=== PATIENT | male | born 1990 | race Caucasian/White ===

== ENCOUNTER → 2017-04-21 | Outpatient (CLI) | payer OTHER ==
[~2017-04-21] MED LIST: CIPR-255 PO; CPR500 PO; METR-163 PO; OXYC-57 PO
--- NOTE | 2017-04-21 11:19 | DIAGNOSTIC IMAGING REPORT ---
ABDOMEN FOR HERNIA CLINICAL HISTORY: 27 years-old Male presenting with INGUINAL HERNIA. TECHNIQUE: Real-time grayscale ultrasound imaging of the right groin was performed. Color Doppler was also performed. COMPARISON: None. FINDINGS: Focused evaluation of the right groin demonstrates heterogeneous isoechoic soft tissue within right inguinal canal. No hyperemia or associated fluid. Upon compression, this retracts into the peritoneal cavity. IMPRESSION: 1. Fat containing right inguinal hernia. Electronically signed by: Elijah Strickland M.D. 04/21/2017 11:17 AM Dictated Date/Time: 04/21/2017 11:15 AM
== END | disposition home or self-care (01) ==
LOC: EDBD 09:53 → C.ULTRBC 09:53
PROVIDERS: ATTEND Family Medicine
DX: K40.91 Unilateral inguinal hernia, without obstruction or gangrene, recurrent (principal)

== ENCOUNTER 2017-07-04 10:39 | Inpatient (IN) | payer OTHER ==
[~2017-07-04] VITALS: Ht 180.3 cm; Wt 75.1 kg
[2017-07-04] MEDS ORDERED: OPTIRAY 320 IV PRN (11:00)
--- NOTE | 2017-07-04 13:04 | DIAGNOSTIC IMAGING REPORT ---
ABD/PELVIS IV AND ORAL CONT HISTORY: 27 years-old Male ABDOMINAL PAIN, R/O APPY acute generalized abdominal pain, most pronounced within the abdominal right lower quadrant. Concern for possible acute appendicitis. History of fat-containing right inguinal hernia. COMPARISON: Ultrasound of the abdomen 04/21/2017 TECHNIQUE: Multiple axial CT images of the abdomen and pelvis were obtained following the intravenous administration of 94 mL Optiray 320. Oral contrast was also used. A dose lowering technique was used consistent with the principals of MADHU. FINDINGS: Lung bases are clear bilaterally. No pneumoperitoneum. Imaged inferior cardiac chambers are unremarkable. The liver, spleen, gallbladder and adrenal glands are unremarkable. The imaged pancreatic head and neck appear normal with no significant pancreatic tissue seen within the expected region of the pancreatic body and tail. The kidneys, ureters, urinary bladder and prostate are unremarkable. Abdominal aorta is normal in both course and caliber. No bulky retroperitoneal adenopathy. Small fat filled right inguinal hernia redemonstrated with mild stranding. There is no bowel obstruction. The appendix is mildly dilated, 8 mm however does contain air within its lumen. Mild amount of contrast is seen within the proximal appendiceal lumen. Scattered mildly prominent mesenteric lymph nodes are seen within the right lower quadrant measuring up to 1.5 x 0.9 cm. There is moderate wall thickening of the terminal ileum with extensive nodular wall thickening and mucosal hyperemia of the cecum and proximal portion of the ascending colon. Moderate surrounding inflammatory stranding and trace right pericolic gutter ascites noted. Soft tissues are unremarkable. Subacute to chronic appearing bilateral pars defects are present at L5 without anterolisthesis. IMPRESSION: 1. Moderate wall thickening of the terminal ileum with extensive nodular wall thickening and mucosal hyperemia of the cecum and proximal ascending colon is present with moderate surrounding inflammatory stranding and trace right pericolic ascites suggesting inflammatory bowel disease or infectious colitis. Follow-up colonoscopy after treatment recommended. 2. Dilated appendix, 8 mm contains air and minimal contrast within its lumen suggesting reactive changes without definite evidence of acute appendicitis. 3. Subacute to chronic appearing bilateral pars defects at L5 without spondylolisthesis. 4. No significant pancreatic tissue is seen within the expected region of the pancreatic body and tail which may be congenital variation or atrophic changes. The above report was generated using voice recognition software. It may contain grammatical, syntax or spelling errors. Electronically signed by: Luke Hemphill M.D. 07/04/2017 1:03 PM Dictated Date/Time: 07/04/2017 12:53 PM
[2017-07-04 14:32] VITALS: BP 141/89; PULSE 96; TEMP 36.9; O2SAT 98; Ht 180.3 cm; Wt 75.1 kg
[2017-07-04] MEDS ORDERED: ZOLPIDEM TARTRATE 5 MG TAB PO PRN (14:45)
[2017-07-04] MEDS ORDERED: ACETAMINOPHEN 325 MG TAB PO PRN (14:45)
[2017-07-04] MEDS ORDERED: ONDANSETRON INJ 2 MG/ML 2 ML VIAL IV PRN (14:45)
[2017-07-04 15:00] VITALS: BP 133/81; PULSE 84; TEMP 36.9; O2SAT 99
[2017-07-04] MEDS ORDERED: MoRPHine SULFATE 2 MG/ML CARP IV PRN (15:30)
--- NOTE | 2017-07-04 15:30 | History and Physical ---
History & Physical Date & Time of Service: Jul 04, 2017 at 15:18 Chief Complaint: Appendicitis, Ibd Primary Care Physician: Chela Perez D.O. History of Present Illness Source: patient, family, clinic records, hospital records This is a 27 y/o male with no significant past medical history who presented for direct admission with RLQ abdominal pain. The patient states that he first developed a generalized abdominal pain about 36 hours ago that was accompanied by severe nausea, although he denies any vomiting. The pain then localized to his RLQ to a very specific point. He states that his nausea has resolved and his abdominal pain is now mostly gone at rest. He now complains of an intermittent 6/10 sharp RLQ pain that is brought on by certain movements/ positions, such as sitting up or abdominal flexion. The patient denies fevers, chills, sweats, chest pain, palpitations, claudication, cough, wheezing, shortness of breath, nausea, vomiting, dysuria, hematuria, urinary retention, paralysis, weakness, numbness and tingling. Past Medical/Surgical History Medical Problems: (1) Right retinal defect Status: Chronic Right inguinal hernia Family History Hypertension Leukemia Myocardial infarction Stroke Social History Smoking Status: Never Smoker Smokeless Tobacco Use: No Alcohol Use: socially (1 beer/week) Drug Use: none Marital Status: Housing status: lives with significant other Occupational Status: employed Allergies Coded Allergies: No Known Allergies (Unverified , 06/28/17) Home Medications No Active Prescriptions or Reported Meds Review of Systems Constitutional: No fever, No chills, No sweats Eyes: No worsening of vision, No eye pain, No diplopia ENT: No hearing loss, No sore throat, No trouble swallowing Respiratory: No cough, No wheezing, No shortness of breath Cardiovascular: No chest pain, No claudication, No palpitations Abdomen: + pain, No nausea, No vomiting Musculoskeletal: No joint pain, No muscle pain, No calf pain Genitourinary - Male: No hematuria, No dysuria, No urinary retention Neurologic: No paralysis, No weakness, No numbness/tingling Integumentary: No rash, No itch, No color change Physical Exam Vital Signs Date Time Temp Pulse Resp B/P (MAP) Pulse Ox O2 Delivery O2 Flow Rate FiO2 07/04/17 14:32 36.9 96 18 141/89 98 Room Air General appearance: Well-developed, well-nourished, no apparent distress Head: Normocephalic, atraumatic Eyes: Normal inspection, PERRL, EOMI ENT: Normal ENT inspection, hearing grossly normal, pharynx normal Neck: Supple, no JVD, trachea midline Respiratory/Chest: Lungs clear to auscultation, normal breath sounds, no respiratory distress Cardiovascular: Regular rate & rhythm, no gallop, no murmur Abdomen/GI: +RLQ TTP. McBurney's point TTP. Normal bowel sounds, soft Extremities/Musculoskeletal: Normal inspection, no calf tenderness, no pedal edema Neurological/Psych: Alert, normal mood/affect, oriented x 3 Skin: Normal color, warm/dry, no rash Diagnostics Laboratory Results Results Past 24 Hours Test 07/04/17 14:42 Range/Units Diagnostic Radiology Reviewed the following studies and agree with interpretation as follows: Patient Name: JHOAN YOUNG Unit Number: [id number] Dictated: 07/04/171252 Transcribed: 07/04/171252 JRB Printed Date/Time: [~ rep prt dt]/[~ rep prt tm] [~ rep ct labl] - [~ rep ct ivnm] [facility] [place] [address] Dictated: 07/04/171252 Transcribed: 07/04/171252 JRB Printed Date/Time: [~ rep prt dt]/[~ rep prt tm] [~ rep ct labl] - [~ rep ct ivnm] Patient: JHOAN YOUNG Address1: [address] [place] [address] Rec: [id number] Address2: Acct ID: [id number] [facility] Zip: [place] [address] Date: 1990 Sex: M Room/Bed: Ref Phy: Chela Perez D.O. SC: DUSTY Att Phy: Rik Tinsley DO Report #: [id number] Alejandrina Phy: Chela Perez D.O. Test: APW Admit Phy: [employer] Sales Consultant: FREDY Interpreting Phy: Garrett R Botteicher D.O. Diagnosis: ABDOMINAL PAIN, R/O APPY Ordering Phy: Rik Tinsley DO Service Date: 07/04/17 Admit Date: 07/04/17 MNE: [id number] CONF: DICTATED BY: Garrett Hemphill D.O.]] CC: Rik Tinsley, Chela Hines D.O. Endcc: [~ rep ct add3]] ABD/PELVIS IV AND ORAL CONT HISTORY: 27 years-old Male ABDOMINAL PAIN, R/O APPY acute generalized abdominal pain, most pronounced within the abdominal right lower quadrant. Concern for possible acute appendicitis. History of fat-containing right inguinal hernia. COMPARISON: Ultrasound of the abdomen 04/21/2017 TECHNIQUE: Multiple axial CT images of the abdomen and pelvis were obtained following the intravenous administration of 94 mL Optiray 320. Oral contrast was also used. A dose lowering technique was used consistent with the principals of MADHU. FINDINGS: Lung bases are clear bilaterally. No pneumoperitoneum. Imaged inferior cardiac chambers are unremarkable. The liver, spleen, gallbladder and adrenal glands are unremarkable. The imaged pancreatic head and neck appear normal with no significant pancreatic tissue seen within the expected region of the pancreatic body and tail. The kidneys, ureters, urinary bladder and prostate are unremarkable. Abdominal aorta is normal in both course and caliber. No bulky retroperitoneal adenopathy. Small fat filled right inguinal hernia redemonstrated with mild stranding. There is no bowel obstruction. The appendix is mildly dilated, 8 mm however does contain air within its lumen. Mild amount of contrast is seen within the proximal appendiceal lumen. Scattered mildly prominent mesenteric lymph nodes are seen within the right lower quadrant measuring up to 1.5 x 0.9 cm. There is moderate wall thickening of the terminal ileum with extensive nodular wall thickening and mucosal hyperemia of the cecum and proximal portion of the ascending colon. Moderate surrounding inflammatory stranding and trace right pericolic gutter ascites noted. Soft tissues are unremarkable. Subacute to chronic appearing bilateral pars defects are present at L5 without anterolisthesis. IMPRESSION: 1. Moderate wall thickening of the terminal ileum with extensive nodular wall thickening and mucosal hyperemia of the cecum and proximal ascending colon is present with moderate surrounding inflammatory stranding and trace right pericolic ascites suggesting inflammatory bowel disease or infectious colitis. Follow-up colonoscopy after treatment recommended. 2. Dilated appendix, 8 mm contains air and minimal contrast within its lumen suggesting reactive changes without definite evidence of acute appendicitis. 3. Subacute to chronic appearing bilateral pars defects at L5 without spondylolisthesis. 4. No significant pancreatic tissue is seen within the expected region of the pancreatic body and tail which may be congenital variation or atrophic changes. The above report was generated using voice recognition software. It may contain grammatical, syntax or spelling errors. Electronically signed by: Luke Hemphill M.D. 07/04/2017 1:03 PM Dictated Date/Time: 07/04/2017 12:53 PM The status of this report is Signed. Draft = Not yet reviewed or approved by Radiologist. Signed = Reviewed and approved by Radiologist. <AttendingPhy>Rik Tinsley, </AttendingPhy> <FamilyPhy>Chela Perez D.O.</FamilyPhy> <PrimaryPhy>Chela Perez D.O.</PrimaryPhy> < UnitNumber>[id number]</UnitNumber> <VisitNumber>[id number]</VisitNumber> < PatientName>TAVIAIDANIAJHOAN Elias</PatientName> <DateOfBirth>1990</ DateOfBirth> <Location>[facility]</Location> <ServiceDate>07/04/17</ServiceDate> <MNE >ESINDI</MNE> <OrderingPhy>Rik Tinsley DO</OrderingPhy> <OrderingPhyMNE>f rep ord dr messina</OrderingPhyMNE> <DictatingPhyMNE>f rep dict dr messina</ DictatingPhyMNE> <CCListMNE>f rep ct mne</CCListMNE> <AdmittingPhyMNE>f pt admit dr messina</AdmittingPhyMNE> <AttendingPhyMNE>f pt attend dr messina</ AttendingPhyMNE> <ConsultingPhyMNE>f pt consult dr messina</ConsultingPhyMNE> <FamilyPhyMNE>f pt fam dr messina</FamilyPhyMNE> <OtherPhyMNE>f pt other dr messina</OtherPhyMNE> < PrimaryPhyMNE>f pt prim care dr messina</PrimaryPhyMNE> <ReferringPhyMNE>f pt referring dr messina</ReferringPhyMNE> Impression Assessment and Plan 27 y/o male with no significant past medical history who presented for direct admission with RLQ abdominal pain. Abdomen/pelvis C with moderate wall thickening of terminal ileum concerning for inflammatory bowel disease vs infectious colitis. Pt denies any personal or family history of IBD. Dilated appendix, possible appendicitis on CT. RLQ pain, possible appendicitis -Admit to med/surg -NPO -NSS at 125 cc/hr -Morphine 2 mg IV q4h prn pain -Zofran 4 mg IV q6h prn nausea -Consult general surgery, appreciate recs ?IBD on CT scan -Consult gastroenterology, appreciate recs -Recommend outpt colonoscopy after resolution of acute disease Right inguinal hernia -Pt had been scheduled for inguinal hernia repair 07/[address] Medrano DVT prophylaxis -Hold chemical prophylaxis due to possible surgery -SCDs Code Status -Level I, FULL RESUSCITATION STATUS Resident Physician Supervision Note: Pt seen/examined independently. I discussed the case with the PA resident and agree with the findings and plan as documented in the note. Any exceptions or clarifications are listed here: Healthy - appearing young male with no significant HX - abdominal imaging was performed due to ongoing pain - revealed possible appendicitis and was also consistent with IBD As it was unclear if he was developing appendicitis, he is admitted for abx and surgical eval. AAO x 3 S1,2 R CTAB Tender RLQ ND, BS+ No CCE P: Pt placed on antibiotics by surgery - will reevaluate AM Evaluated by GI and placed on steroids - will need outpt colonoscopy Documented By: Bin Dash Level of Care Med/Surg Advanced Directives Existing Living Will: No Existing Power of Tractor Technician: No Resuscitation Status FULL RESUSCITATION VTE Prophylaxis VTE Risk Assessment Done? Y/N: Yes Risk Level: Moderate Given or contraindicated: SCD's
[2017-07-04] MEDS: SODIUM CHLORIDE 0.9% 1000ML 1,000 ML IV SCH ×2 (15:54→23:57)
[2017-07-04 16:06] LABS: HEMATOCRIT 42.5 % (42-52); MEAN CORPUSCULAR HEMOGLOBIN 28.8 pg (25-34); MEAN CORPUSCULAR HGB CONC 35.1 g/dl (32-36); PLATELET COUNT 186 K/uL (130-400); RED BLOOD COUNT 5.18 M/uL (4.7-6.1); WHITE BLOOD COUNT 13.73 K/uL (4.8-10.8)
--- NOTE | 2017-07-04 16:14 | CONSULTATION REPORT ---
DATE OF CONSULTATION: 07/04/2017 REASON FOR CONSULT: Right lower quadrant pain. HISTORY OF PRESENT ILLNESS: The patient is a 27-year-old male who has been seen in our office over the last few weeks for scheduling of a right inguinal hernia repair. Over the last 36 hours or so, he has had more mid to lower abdominal pain with nausea and now pain is localized in the right lower quadrant. His nausea has improved. No vomiting. He last ate last evening. His bowels have been normal. No diarrhea, mucus or blood. He had a feeling of chills. No fevers. This pain is different than what he was seen in the office for a few weeks ago, which was more localized to the right groin and increasing bulging of the right inguinal hernia. PAST MEDICAL HISTORY: Right inguinal hernia. PAST SURGICAL HISTORY: Left inguinal hernia repair approximately 10 years ago and wisdom tooth extraction. SOCIAL HISTORY: Denies tobacco use. Drinks approximately 1 beer per week. FAMILY HISTORY: Hypertension, leukemia, [place] and stroke. No history of inflammatory bowel disease. CURRENT MEDICATIONS: No home medications. ALLERGIES: NKDA. REVIEW OF SYSTEMS: GENERAL: No fevers or sweats. GASTROINTESTINAL: As per HPI. He has not seen GI in the past for any abdominal complaints. OBJECTIVE: GENERAL: He appears in no acute distress. VITAL SIGNS: Temperature 36.9, pulse 84, respirations 20, blood pressure 133/81, and pulse ox 99% on room air. HEENT: Unremarkable. HEART: Regular rate and rhythm. No murmur noted. LUNGS: Clear to auscultation. No wheezes. No accessory muscle use. ABDOMEN: Soft and nondistended. Has right inguinal hernia. He has moderate to point tenderness in the right lower quadrant. No rebound, but some guarding. SKIN: Warm and dry. LABORATORY DATA: CBC and PRP are pending. IMAGING: CT with IV and oral contrast shows thickening of the terminal ileum with a nodular wall thickening and mucosal hyperemia of the cecum and proximal ascending colon. There is trace right pericolic ascites. Appendix was dilated to 8 mm, contains air and minimal contrast. IMPRESSION: Enteritis/colitis, possibly inflammatory bowel disease. PLAN: He does not have any acute abdominal findings at this time that would necessitate surgical intervention. We will continue to follow his progress. GI is consulted as well. We will probably put his hernia repair on hold until evaluation for his enteritis is complete. I will discuss that with Dr. Medrano further. His acute situation was discussed with Dr. Vaz and he will continue to follow the patient. [facility]
[2017-07-04] MEDS ORDERED: PIPERACILL/TAZOBAC CONSULT ACTIVE PRN (16:15)
[2017-07-04 16:24] LABS: BUN/CREATININE RATIO 7.4 (10-20); CALCIUM 9.8 mg/dl (8.5-10.1); CREATININE 0.91 mg/dl (0.60-1.40); POTASSIUM 3.8 mmol/L (3.5-5.1)
--- NOTE | 2017-07-04 16:52 | Surgery Consultation ---
Consultation Date of Consultation: Jul 04, 2017. Attending Physician: Bin Dash M.D. History of Present Illness right lower quadrant pain Family History Hypertension Leukemia Myocardial infarction Stroke Social History Smoking Status: Never Smoker Smokeless Tobacco Use: No Alcohol Use: socially (1 beer/week) Drug Use: none Marital Status: Housing Status: lives with family Occupation Status: employed Allergies Coded Allergies: No Known Allergies (Unverified , 06/28/17) Home Medications No Active Prescriptions or Reported Meds Current Inpatient Medications Current Inpatient Medications Medications (Trade) Dose Ordered Sig/Lemuel Route Start Time Stop Time Status Last Admin Dose Admin Ioversol (Optiray 320) 100 ml UD PRN IV 07/04/17 11:00 07/08/17 10:59 Acetaminophen (Tylenol Tab) 650 mg Q4H PRN PO 07/04/17 14:45 08/03/17 14:44 Zolpidem Tartrate (Ambien Tab) 5 mg HSZ PRN PO 07/04/17 14:45 08/03/17 14:44 Ondansetron HCl (Zofran Inj) 4 mg Q6H PRN IV 07/04/17 14:45 08/03/17 14:44 Morphine Sulfate (MoRPHine SULFATE INJ) 2 mg Q4H PRN IV 07/04/17 15:30 07/18/17 15:29 Sodium Chloride 1,000 ml @ 125 mls/hr Q8H IV 07/04/17 15:30 08/03/17 15:29 07/04/17 15:54 125 MLS/HR Piperacillin Sod/ Tazobactam Sod 3.375 gm/Dextrose 115 ml @ 28.75 mls/ hr Q8H IV 07/04/17 22:00 07/14/17 13:59 Piperacillin Sod/ Tazobactam Sod (Consult) 1 ea UD PRN N/A 07/04/17 16:15 08/03/17 16:14 Piperacillin Sod/ Tazobactam Sod 3.375 gm/Dextrose 115 ml @ 200 mls/hr Tu@1700 IV 07/04/17 17:00 07/04/17 17:35 Physical Exam Date Time Temp Pulse Resp B/P (MAP) Pulse Ox O2 Delivery O2 Flow Rate FiO2 07/04/17 15:00 36.9 84 20 133/81 (98) 99 Room Air 07/04/17 14:32 36.9 96 18 141/89 98 Room Air Laboratory Results Last 24 Hours Test 07/04/17 15:33 White Blood Count 13.73 K/uL Red Blood Count 5.18 M/uL Hemoglobin 14.9 g/dL Hematocrit 42.5 % Mean Corpuscular Volume 82.0 fL Mean Corpuscular Hemoglobin 28.8 pg Mean Corpuscular Hemoglobin Concent 35.1 g/dl RDW Standard Deviation 37.6 fL RDW Coefficient of Variation 12.6 % Platelet Count 186 K/uL Mean Platelet Volume 10.0 fL Sodium Level 138 mmol/L Potassium Level 3.8 mmol/L Chloride Level 101 mmol/L Carbon Dioxide Level 28 mmol/L Anion Gap 9.0 mmol/L Blood Urea Nitrogen 7 mg/dl Creatinine 0.91 mg/dl Est Creatinine Clear Calc Drug Dose 127.2 ml/min Estimated GFR () 131.5 Estimated GFR (Non- 113.5 BUN/Creatinine Ratio 7.4 Random Glucose 92 mg/dl Calcium Level 9.8 mg/dl Magnesium Level 2.0 mg/dl Assessment & Plan see full consultation by Randy Wong no history of inflammatory bowel disease remote episode of similar pain past self limiting pt examined and mother in law bedside minimal non localized pain right lower quadrant ct scan noted elevated wbc at this time non surgical problem suspect primary problem related to ileum and cecum not appendix broad spectrum antibiotics gastroenterology consult watch clinical picture
[2017-07-04] MEDS ORDERED: PIPERACILL/TAZOBAC IV 3.375 GM in DEXTROSE 5% 100ML 100 ML IV SCH (17:00)
[2017-07-04] MEDS: METHYLPREDNISOLONE IV 20 MG in SYRINGE 0 ML IV SCH (21:39)
[2017-07-04] MEDS: PIPERACILL/TAZOBAC IV 3.375 GM in DEXTROSE 5% 100ML 100 ML IV SCH (21:39)
--- NOTE | 2017-07-04 22:37 | GASTROINTESTINAL CONSULTATION ---
DATE OF CONSULTATION: 07/04/2017 REASON FOR CONSULTATION: Right lower quadrant pain. HISTORY OF PRESENT ILLNESS: The patient is a 27-year-old who was previously healthy until a day and a half ago, when he began experiencing some vague abdominal pain over the next 12-24 hours. The pain is localized to the right lower quadrant. There was loss of appetite, but no fever. Some nausea, but no vomiting. The pain was rated as a 6/10 and he ended up coming to the hospital for evaluation after seeing his primary care physician. In the hospital, the patient was noted to have a white count of over 13,000. CT scan showed some inflammation in the right lower quadrant involving the ileum, cecum and appendix with some air in the appendix described on the CT scan. After seeing the surgeons, they felt that his abdomen was not acute at this time and did raise the question of possible Crohn's disease and GI consultation was obtained. PAST MEDICAL HISTORY: Positive for a retinal defect on the right. He also has a right inguinal hernia which is scheduled to be repaired in the next week or two. MEDICATIONS: None. ALLERGIES: None. FAMILY HISTORY: Positive for hypertension, leukemia, stroke and heart attack. SOCIAL HISTORY: The patient is . He is employed. He drinks about one beer a week. He does not smoke. REVIEW OF SYSTEMS: Negative for 12 systems. PHYSICAL EXAMINATION: GENERAL: The patient appears awake, alert and in no acute distress. VITAL SIGNS: Normal. He is afebrile, temperature of 37. HEART: Normal. LUNGS: Normal. ABDOMEN: Shows no scars. There is some tenderness in the right lower quadrant in McBurney's point, but no percussion, tenderness or rebound. LABORATORIES: Positive for white count of over 13,000. Chem profile is normal. IMPRESSION: The patient has acute onset of right lower quadrant pain which is very typical of acute appendicitis except he has not developed a fever and his CAT scan shows a lot more inflammation involving the cecum and ilium as well. It is possible that still could be acute appendicitis or it could be Crohn's disease. At this point, he does not have an acute abdomen warranting aggressive intervention surgically. I plan on doing is, in addition to his antibiotics adding Solu-Medrol 20 mg 3 times a day. We will check Crohn's antibodies, a sedimentation rate and follow him clinically for his white count, temperature, pain and abdominal exam over the next 24-48 hours. If he improves, then we may be able to clean him out to do a colonoscopy. If he worsens, then he may require a surgical intervention. We will continue to follow the patient during his hospital stay.
[2017-07-04 22:54] VITALS: BP 122/71; PULSE 67; TEMP 36.8; O2SAT 96
[2017-07-05] MEDS: PIPERACILL/TAZOBAC IV 3.375 GM in DEXTROSE 5% 100ML 100 ML IV SCH ×3 (06:08→21:05)
[2017-07-05 06:55] LABS: HEMATOCRIT 39.9 % (42-52); MEAN CELL VOLUME 81.8 fL (80-100); MEAN CORPUSCULAR HEMOGLOBIN 28.7 pg (25-34); MEAN CORPUSCULAR HGB CONC 35.1 g/dl (32-36); MEAN PLATELET VOLUME 10.1 fL (7.4-10.4); PLATELET COUNT 186 K/uL (130-400); RED BLOOD COUNT 4.88 M/uL (4.7-6.1); WHITE BLOOD COUNT 12.25 K/uL (4.8-10.8)
[2017-07-05 07:19] LABS: BUN/CREATININE RATIO 10.8 (10-20); CALCIUM 9.3 mg/dl (8.5-10.1); CREATININE 0.93 mg/dl (0.60-1.40); POTASSIUM 4.1 mmol/L (3.5-5.1)
[2017-07-05 07:27] VITALS: BP 116/67; PULSE 68; TEMP 36.2; O2SAT 96
[2017-07-05] MEDS: SODIUM CHLORIDE 0.9% 1000ML 1,000 ML IV SCH ×3 (08:04→23:22)
--- NOTE | 2017-07-05 08:28 | Surgery Progress Note ---
Surgery Progress Note Date of Service Jul 05, 2017. Subjective + ambulating, + pain controlled, No bowel movement, No nausea, No vomiting Patient in bed- Reports that he is feeling better than yesterday. Reports that he does still have pain in the right lower quadrant. Patient remains NPO. Objective Vital Signs: Date Time Temp Pulse Resp B/P (MAP) Pulse Ox O2 Delivery O2 Flow Rate FiO2 07/05/17 07:27 36.2 68 16 116/67 (83) 96 Room Air 07/05/17 00:10 Room Air 07/04/17 22:54 36.8 67 17 122/71 (88) 96 Room Air 07/04/17 16:00 Room Air 07/04/17 15:00 36.9 84 20 133/81 (98) 99 Room Air 07/04/17 14:32 36.9 96 18 141/89 98 Room Air General Appearance: WD/WN, no apparent distress Abdomen: soft, + pertinent finding (mild tenderness to palpation in right lower quadrant- no guarding, no rebound tenderness. ) Laboratory Results: Results Past 24 Hours Test 07/04/17 15:33 07/05/17 06:12 Range/Units White Blood Count 13.73 12.25 4.8-10.8 K/uL Red Blood Count 5.18 4.88 4.7-6.1 M/uL Hemoglobin 14.9 14.0 14.0-18.0 g/dL Hematocrit 42.5 39.9 42-52 % Mean Corpuscular Volume 82.0 81.8 80-100 fL Mean Corpuscular Hemoglobin 28.8 28.7 25-34 pg Mean Corpuscular Hemoglobin Concent 35.1 35.1 32-36 g/dl RDW Standard Deviation 37.6 37.1 36.4-46.3 fL RDW Coefficient of Variation 12.6 12.4 11.5-14.5 % Platelet Count 186 186 130-400 K/uL Mean Platelet Volume 10.0 10.1 7.4-10.4 fL Erythrocyte Sedimentation Rate 12 0-14 mm/hr Sodium Level 138 139 136-145 mmol/L Potassium Level 3.8 4.1 3.5-5.1 mmol/L Chloride Level 101 106 98-107 mmol/L Carbon Dioxide Level 28 24 21-32 mmol/L Anion Gap 9.0 9.0 3-11 mmol/L Blood Urea Nitrogen 7 10 7-18 mg/dl Creatinine 0.91 0.93 0.60-1.40 mg/dl Est Creatinine Clear Calc Drug Dose 127.2 124.5 ml/min Estimated GFR () 131.5 128.1 Estimated GFR (Non- 113.5 110.5 BUN/Creatinine Ratio 7.4 10.8 10-20 Random Glucose 92 150 70-99 mg/dl Calcium Level 9.8 9.3 8.5-10.1 mg/dl Magnesium Level 2.0 1.8-2.4 mg/dl Assessment & Plan Reviewed consultation from Dr. Denton, GI. Patient's abdominal pain is improving. Ambulating in room. Patient remains afebrile. WBC down from 13.73 to 12.25. Awaiting Crohn's laboratory workup. Will continue IV abx. No need for surgical intervention at this time, will continue to follow patient closely. Patient was discussed with Dr. Medraon- Gen Surg office will contact patient with regard to upcoming right inguinal hernia repair. feels much better than yesterday no nausea, pain dec exam pain not pinpoint and defenitely dec rlq Dr Denton's note seen will start clear liquids watch clinical picture told pt if worsens may need re imaging at this time not a surgical abdomen
[2017-07-05] MEDS: METHYLPREDNISOLONE IV 20 MG in SYRINGE 0 ML IV SCH ×3 (09:37→21:06)
--- NOTE | 2017-07-05 12:10 | Medical Student: [facility] ---
Med Student History & Physical Date & Time of Service: Jul 05, 2017 at 11:11 Chief Complaint: Appendicitis, Ibd Primary Care Physician: Chela Perez D.O. History of Present Illness Source: patient, hospital records This is 27 year-old male with no significant past medical history except for right inguinal hernia presented 07/04 with right lower quadrant pain. Pt states that it has started the day prior but getting worse. Pain is localized to the right lower quadrant and described as sharp pain rating 6/10, not radiating anywhere. He did not take anything for it, and since it is around the [place] point, he's worried that it is appendicitis so he came in. He also had nausea starting around the same time but does not think that it is associated with pain. Denies vomiting. Bowels are normal. Some loose stool but no blood. He is scheduling to have right inguinal hernia surgery in a couple of weeks. VS except for elevated WBC is otherwise stable. Abd CT showed thickening of terminal ileum and mucosal hyperemia of cecum and ascending colon concerning for IBD. Pt was started on Zosyn and methylprednisone. Today, he states that he feels better. Pain reduced to 1-2/10. Nausea resolved. Mild BEDOLLA and chills yesterday but they are resolved also. Denies fever, N/V/D, CP , SOB, normal bowels and no dysuria. Past Medical/Surgical History PMH - Right inguinal hernia Surgery - Left inguinal hernia (2006) - [place] Teeth removal Family History Hx of [place], stroke, cancer, and HTN Social History Smoking Status: Never Smoker Smokeless Tobacco Use: No Alcohol Use: socially (1 beer/week) Drug Use: none Marital Status: Housing status: lives with family Occupational Status: employed ([employer]) Allergies Coded Allergies: No Known Allergies (Unverified , 06/28/17) Medications No Active Prescriptions or Reported Meds Review of Systems Constitutional: No fever, No chills, No sweats Eyes: No worsening of vision ENT: No hearing loss Respiratory: No cough, No sputum, No shortness of breath Cardiovascular: No chest pain Abdomen: + pain (localized right lower quadrant ), No nausea, No vomiting, No diarrhea, No constipation Musculoskeletal: No joint pain, No swelling Genitourinary - Male: No hematuria, No dysuria Neurologic: No memory loss Integumentary: No rash Physical Exam Vital Signs (24 Hours) Date Time Temp Pulse Resp B/P (MAP) Pulse Ox O2 Delivery O2 Flow Rate FiO2 07/05/17 08:00 Room Air 07/05/17 07:27 36.2 68 16 116/67 (83) 96 Room Air 07/05/17 00:10 Room Air 07/04/17 22:54 36.8 67 17 122/71 (88) 96 Room Air 07/04/17 16:00 Room Air 07/04/17 15:00 36.9 84 20 133/81 (98) 99 Room Air 07/04/17 14:32 36.9 96 18 141/89 98 Room Air General Appearance: WD/WN, no apparent distress Head: atraumatic Eyes: normal inspection ENT: hearing grossly normal Respiratory/Chest: lungs clear, normal breath sounds, no respiratory distress Cardiovascular: regular rate, rhythm, no murmur Abdomen/GI: normal bowel sounds, soft, + tenderness (RLQ) Extremities/Musculoskelatal: normal inspection, no pedal edema Neurologic/Psych: alert, normal reflexes, oriented x 3 Diagnostics Laboratory Results Results Past 24 Hours Test 07/04/17 15:33 07/05/17 06:12 Range/Units White Blood Count 13.73 12.25 4.8-10.8 K/uL Red Blood Count 5.18 4.88 4.7-6.1 M/uL Hemoglobin 14.9 14.0 14.0-18.0 g/dL Hematocrit 42.5 39.9 42-52 % Mean Corpuscular Volume 82.0 81.8 80-100 fL Mean Corpuscular Hemoglobin 28.8 28.7 25-34 pg Mean Corpuscular Hemoglobin Concent 35.1 35.1 32-36 g/dl RDW Standard Deviation 37.6 37.1 36.4-46.3 fL RDW Coefficient of Variation 12.6 12.4 11.5-14.5 % Platelet Count 186 186 130-400 K/uL Mean Platelet Volume 10.0 10.1 7.4-10.4 fL Erythrocyte Sedimentation Rate 12 0-14 mm/hr Sodium Level 138 139 136-145 mmol/L Potassium Level 3.8 4.1 3.5-5.1 mmol/L Chloride Level 101 106 98-107 mmol/L Carbon Dioxide Level 28 24 21-32 mmol/L Anion Gap 9.0 9.0 3-11 mmol/L Blood Urea Nitrogen 7 10 7-18 mg/dl Creatinine 0.91 0.93 0.60-1.40 mg/dl Est Creatinine Clear Calc Drug Dose 127.2 124.5 ml/min Estimated GFR () 131.5 128.1 Estimated GFR (Non- 113.5 110.5 BUN/Creatinine Ratio 7.4 10.8 10-20 Random Glucose 92 150 70-99 mg/dl Calcium Level 9.8 9.3 8.5-10.1 mg/dl Magnesium Level 2.0 1.8-2.4 mg/dl Diagnostic Radiology Abdominal CT - Thickening of terminal ileum with nodular wall thickening and mucosal hyperemia of cecum and ascending colon, dilated appendix without signs of appendicitis. Impression Assessment and Plan This is 27 year-old male with no significant PMH except of right inguinal hernia pending surgical repair presented on 07/04 with RLQ pain with nausea. DDx: healthy, young 27 year-old with RLQ pain - strangulated hernia, appendicitis, colitis, IBD. Abdominal CT - Thickening of terminal ileum with nodular wall thickening and mucosal hyperemia of cecum and ascending colon, dilated appendix without signs of appendicitis. Colitis vs IBD. Abdominal pain - Colitis/suspected IBD WBC is improving 13.73 -> 12.25 today. ESR is normal at 12. Pain improved. - Continue Zosyn - Continue Solu-medrol 20mg TID to help with symptoms. WBC and left shift may occur due to steroid. - IVF - GI and General surgery consulted - no indication for surgical intervention right now. Continue monitor pt's condition. Colonoscopy inpt vs outpt to confirm diagnosis. Right inguinal hernia No signs of bowel obstruction or strangulated hernia on CT - Follow with Dr. Medrano for further plan. Level of Care Med/Surg Advanced Directives Existing Living Will: No Existing Power of Lead Worker Of Housekeeping And Laundry: No Resuscitation Status FULL RESUSCITATION DVT Prophylaxis other (ambulation) Social Service Consult None Apply Note Total Time: Critical Care 30 - 74 minutes
--- NOTE | 2017-07-05 14:57 | Hospitalist Progress Note ---
Hospitalist Progress Note Date of Service Jul 05, 2017. (Santa Bowling ., RAJESHC) Subjective Pt evaluation today including: conversation w/ patient, physical exam, lab review, review of studies, review of inpatient medication list Voiding: no voiding problems Patient feeling well. Sitting upright in bed. Abdominal pain has significantly improved. Currently 11/11. General surgery advanced diet to clear liquids. No surgical intervention at this time. Had a loose BM today. Patient denies any fever, chills, sweats, lightheadedness, dizziness, vision changes, CP, palpitations, edema, SOB, wheezing, cough, nausea, vomiting, diarrhea, urinary symptoms, melena, numbness/tingling, weakness, muscle/joint pain, anxiety/depression, active bleeding, or new skin discoloration/changes. (Santa Bowling ., HAYDEE-C) Medications Current Inpatient Medications Medications (Trade) Dose Ordered Sig/Lemuel Route Start Time Stop Time Status Last Admin Dose Admin Ioversol (Optiray 320) 100 ml UD PRN IV 07/04/17 11:00 07/08/17 10:59 Acetaminophen (Tylenol Tab) 650 mg Q4H PRN PO 07/04/17 14:45 08/03/17 14:44 Zolpidem Tartrate (Ambien Tab) 5 mg HSZ PRN PO 07/04/17 14:45 08/03/17 14:44 Ondansetron HCl (Zofran Inj) 4 mg Q6H PRN IV 07/04/17 14:45 08/03/17 14:44 Morphine Sulfate (MoRPHine SULFATE INJ) 2 mg Q4H PRN IV 07/04/17 15:30 07/18/17 15:29 Sodium Chloride 1,000 ml @ 125 mls/hr Q8H IV 07/04/17 15:30 08/03/17 15:29 07/05/17 08:04 125 MLS/HR Piperacillin Sod/ Tazobactam Sod 3.375 gm/Dextrose 115 ml @ 28.75 mls/ hr Q8H IV 07/04/17 22:00 07/14/17 13:59 07/05/17 14:04 28.75 MLS/HR Piperacillin Sod/ Tazobactam Sod (Consult) 1 ea UD PRN N/A 07/04/17 16:15 08/03/17 16:14 Methylprednisolone Sodium Succinate 20 mg/Syringe 0.32 ml @ 1.5 mls/min TID IV 07/04/17 21:00 08/03/17 20:59 07/05/17 14:05 1.5 MLS/MIN (Santa Bowling, HAYDEE-C) Objective Vital Signs Date Time Temp Pulse Resp B/P (MAP) Pulse Ox O2 Delivery O2 Flow Rate FiO2 07/05/17 07:27 36.2 68 16 116/67 (83) 96 Room Air 07/05/17 00:10 Room Air 07/04/17 22:54 36.8 67 17 122/71 (88) 96 Room Air 07/04/17 16:00 Room Air 07/04/17 15:00 36.9 84 20 133/81 (98) 99 Room Air 07/04/17 14:32 36.9 96 18 141/89 98 Room Air (Santa Bowling, PA-C) Physical Exam General Appearance: no apparent distress Eyes: normal inspection, PERRL ENT: hearing grossly normal Neck: supple Respiratory/Chest: lungs clear, no respiratory distress, no accessory muscle use Cardiovascular: regular rate, rhythm Abdomen: normal bowel sounds, soft, + tenderness (mild RLQ ttp ) Extremities: no pedal edema, no calf tenderness Neurologic/Psychiatric: alert, normal mood/affect, oriented x 3 Skin: normal color, warm/dry, no rash (Santa Bowling, PA-C) Laboratory Results Last 24 Hours Test 07/04/17 15:33 07/05/17 06:12 White Blood Count 13.73 K/uL 12.25 K/uL Red Blood Count 5.18 M/uL 4.88 M/uL Hemoglobin 14.9 g/dL 14.0 g/dL Hematocrit 42.5 % 39.9 % Mean Corpuscular Volume 82.0 fL 81.8 fL Mean Corpuscular Hemoglobin 28.8 pg 28.7 pg Mean Corpuscular Hemoglobin Concent 35.1 g/dl 35.1 g/dl RDW Standard Deviation 37.6 fL 37.1 fL RDW Coefficient of Variation 12.6 % 12.4 % Platelet Count 186 K/uL 186 K/uL Mean Platelet Volume 10.0 fL 10.1 fL Erythrocyte Sedimentation Rate 12 mm/hr Sodium Level 138 mmol/L 139 mmol/L Potassium Level 3.8 mmol/L 4.1 mmol/L Chloride Level 101 mmol/L 106 mmol/L Carbon Dioxide Level 28 mmol/L 24 mmol/L Anion Gap 9.0 mmol/L 9.0 mmol/L Blood Urea Nitrogen 7 mg/dl 10 mg/dl Creatinine 0.91 mg/dl 0.93 mg/dl Est Creatinine Clear Calc Drug Dose 127.2 ml/min 124.5 ml/min Estimated GFR () 131.5 128.1 Estimated GFR (Non- 113.5 110.5 BUN/Creatinine Ratio 7.4 10.8 Random Glucose 92 mg/dl 150 mg/dl Calcium Level 9.8 mg/dl 9.3 mg/dl Magnesium Level 2.0 mg/dl (Santa Bowling, HAYDEE-C) Assessment and Plan 27 y/o male with no significant past medical history who presented for direct admission with RLQ abdominal pain. Abdomen/pelvis C with moderate wall thickening of terminal ileum concerning for inflammatory bowel disease vs infectious colitis. Pt denies any personal or family history of IBD. Dilated appendix, possible appendicitis on CT. RLQ pain, secondary to ?IBD vs appendicitis vs colitis: - Admit to med/surg - NSS @ 125 cc/hr until tolerating PO - Advance diet as per General Surgery/GI - Morphine 2 mg IV q4h PRN pain - Zofran 4 mg IV q6h PRN nausea - IV Zosyn- started on 07/04 - Consult general surgery, appreciate recommendations- no surgical intervention at this time - Consult GI, appreciate recommendations- IV antibiotics + Solu-Medrol TID, check Crohn's studies, ESR, watch clinical response- ?colonoscopy vs surgical intervention Right inguinal hernia- Scheduled for inguinal hernia repair 07/[address] Medrano- General surgery following DVT prophylaxis: SCDs/ambulation, chemical prophylaxis held due to ?surgery Code Status: LEVEL I, FULL Dispo: Discharge to home once medically stable- hopefully within the next 1-2 days- no discharge needs anticipated (Santa Bowling, PA-C) I agree with PA assessment and plan and have seen and examined pt myself Resting comfortably in bed Abd pain resolving No fevers Leukocytosis improving Pain controlled No acute abdomen Defer to GI for endoscopy as IP Cont clear liquid diet at this time (Vic Avila, D.O.)
[2017-07-05 15:58] VITALS: BP 139/81; PULSE 78; TEMP 36.7; O2SAT 97
--- NOTE | 2017-07-05 16:34 | PROGRESS NOTE ---
DATE: 07/05/2017 DATE: 07/05/2017 SUBJECTIVE: The patient reports his abdominal pain is improving. Still has about a 2/10 pain in the right lower quadrant. He has had no nausea or vomiting. He is tolerating clear liquids. He did have a liquid bowel movement earlier today. His vital signs are normal. His white count has decreased from 13.73 to 12.25. Hemoglobin and platelets were normal. Sedimentation rate is normal. Abdomen exam shows some decreased tenderness in the right lower quadrant. IMPRESSION: The patient's right lower quadrant pain and abnormal CT scan are improving on antibiotics and IV steroids. It is still unclear whether this represents appendicitis or possibly Crohn's disease. At this point, I plan on proceeding with bowel prep and scheduling him for colonoscopy tomorrow to see if we can help define what exactly is going on in the right lower quadrant. Hopefully that will answer the question. In the meantime, we will keep him on antibiotics and IV steroids.
[2017-07-05 16:37] VITALS: BP 139/81; PULSE 78; TEMP 36.7; O2SAT 97
[2017-07-05] MEDS: LAVAGE SOLUTION 4000ML PO SCH (18:07)
[2017-07-05 22:10] VITALS: TEMP 36.8
[2017-07-05] MEDS ORDERED: DiphenhydrAMINE HCL 50 MG/ML VIAL ONE (22:36)
[2017-07-05] MEDS ORDERED: NURSING VERBAL MED ORDER ONE (22:45)
[2017-07-05 23:07] VITALS: BP 150/80; PULSE 75; O2SAT 100
[2017-07-06] MEDS: PIPERACILL/TAZOBAC IV 3.375 GM in DEXTROSE 5% 100ML 100 ML IV SCH ×3 (05:31→21:49)
[2017-07-06] MEDS: LAVAGE SOLUTION 4000ML PO SCH (05:31)
[2017-07-06 06:17] LABS: HEMATOCRIT 36.7 % (42-52); MEAN CELL VOLUME 82.7 fL (80-100); MEAN CORPUSCULAR HEMOGLOBIN 28.4 pg (25-34); MEAN CORPUSCULAR HGB CONC 34.3 g/dl (32-36); MEAN PLATELET VOLUME 9.6 fL (7.4-10.4); PLATELET COUNT 184 K/uL (130-400); RED BLOOD COUNT 4.44 M/uL (4.7-6.1); WHITE BLOOD COUNT 13.95 K/uL (4.8-10.8)
--- NOTE | 2017-07-06 06:42 | SURGERY PROGRESS NOTE ---
DATE: 07/06/2017 Bairon had a very good day yesterday. His right lower quadrant pain is very much subsided. He is being prepped for colonoscopy today. His last vitals showed a temperature of 36.8, pulse 75, respirations 18, blood pressure 150/80, O2 sats 100 on room air. Laboratory germain, his white count is up to 13.95, may be related to the steroids, his hemoglobin was 12.6. His abdomen is completely benign. He has minimal discomfort on deep palpation in the right lower quadrant. It is nonlocalized. It pretty much involves most of his right lower quadrant area. At this point, we will await what the colonoscopy reveals. I did mention to him if this is completely normal, we may re image him or even consider the possibility that this is appendicitis and proceed with sabas eddy. REFUGIO
[2017-07-06 06:51] LABS: BUN/CREATININE RATIO 9.6 (10-20); CALCIUM 9.3 mg/dl (8.5-10.1); CREATININE 0.82 mg/dl (0.60-1.40); POTASSIUM 4.5 mmol/L (3.5-5.1)
[2017-07-06 07:05] VITALS: BP 139/83; PULSE 67; TEMP 36.2; O2SAT 98
[2017-07-06] MEDS: SODIUM CHLORIDE 0.9% 1000ML 1,000 ML IV SCH ×3 (07:09→23:35)
[2017-07-06] MEDS: METHYLPREDNISOLONE IV 20 MG in SYRINGE 0 ML IV SCH (09:24)
--- NOTE | 2017-07-06 11:08 | Medical Student: [facility] ---
Med Student Progress Note Date of Service Jul 06, 2017. Subjective Pt evaluation today including: conversation w/ patient, physical exam, chart review, lab review, review of studies, review of inpatient medication list Pain: minimal PO Intake: npo, colonoscopy prep Voiding: no voiding problems This is 27 year-old male with no significant past medical history except for right inguinal hernia presented 07/04 with right lower quadrant pain. Abd CT showed thickening of terminal ileum and mucosal hyperemia of cecum and ascending colon concerning for IBD. Pt was started on Zosyn and methylprednisone. Today, he states that he feels fine. Pain is minimal to the RLQ, lateral to the [place] point. Pt is preparing for colonoscopy at 3pm. Clear bm due to preps. No other concerns. Review of Systems Constitutional: No fever, No chills, No sweats Eyes: No worsening of vision ENT: No hearing loss Respiratory: No cough, No shortness of breath Cardiac: No chest pain Abdomen: + pain (minimal RLQ), No nausea, No vomiting, No diarrhea, No constipation Musculoskeletal: No joint pain, No muscle pain Male : No dysuria Psychiatric: No depression symptoms Skin: No rash Objective Vital Signs Date Time Temp Pulse Resp B/P (MAP) Pulse Ox O2 Delivery O2 Flow Rate FiO2 07/06/17 08:00 Room Air 07/06/17 07:05 36.2 67 16 139/83 (101) 98 Room Air 07/05/17 23:45 Room Air 07/05/17 23:07 75 18 150/80 (103) 100 Room Air 07/05/17 22:10 36.8 07/05/17 16:37 36.7 78 18 139/81 97 Room Air 07/05/17 15:58 36.7 78 18 139/81 (100) 97 Room Air 07/05/17 15:30 Room Air Physical Exam General Appearance: WD/WN, no apparent distress Eyes: bilateral eyes normal inspection ENT: hearing grossly normal Respiratory/Chest: lungs clear, normal breath sounds, no respiratory distress Cardiovascular: regular rate, rhythm, no murmur Abdomen: normal bowel sounds, soft, + tenderness (slight tenderness RLQ) Extremities: normal inspection, no pedal edema Neurologic/Psychiatric: alert, normal mood/affect, oriented x 3 Laboratory Results Last 24 Hours Test 07/06/17 06:04 White Blood Count 13.95 K/uL Red Blood Count 4.44 M/uL Hemoglobin 12.6 g/dL Hematocrit 36.7 % Mean Corpuscular Volume 82.7 fL Mean Corpuscular Hemoglobin 28.4 pg Mean Corpuscular Hemoglobin Concent 34.3 g/dl RDW Standard Deviation 37.7 fL RDW Coefficient of Variation 12.4 % Platelet Count 184 K/uL Mean Platelet Volume 9.6 fL Sodium Level 143 mmol/L Potassium Level 4.5 mmol/L Chloride Level 109 mmol/L Carbon Dioxide Level 28 mmol/L Anion Gap 6.0 mmol/L Blood Urea Nitrogen 8 mg/dl Creatinine 0.82 mg/dl Est Creatinine Clear Calc Drug Dose 141.2 ml/min Estimated GFR () 138.5 Estimated GFR (Non- 119.5 BUN/Creatinine Ratio 9.6 Random Glucose 130 mg/dl Calcium Level 9.3 mg/dl Medications Current Inpatient Medications Medications (Trade) Dose Ordered Sig/Lemuel Route Start Time Stop Time Status Last Admin Dose Admin Ioversol (Optiray 320) 100 ml UD PRN IV 07/04/17 11:00 07/08/17 10:59 Acetaminophen (Tylenol Tab) 650 mg Q4H PRN PO 07/04/17 14:45 08/03/17 14:44 Zolpidem Tartrate (Ambien Tab) 5 mg HSZ PRN PO 07/04/17 14:45 08/03/17 14:44 Ondansetron HCl (Zofran Inj) 4 mg Q6H PRN IV 07/04/17 14:45 08/03/17 14:44 Morphine Sulfate (MoRPHine SULFATE INJ) 2 mg Q4H PRN IV 07/04/17 15:30 07/18/17 15:29 Sodium Chloride 1,000 ml @ 125 mls/hr Q8H IV 07/04/17 15:30 08/03/17 15:29 07/06/17 07:09 125 MLS/HR Piperacillin Sod/ Tazobactam Sod 3.375 gm/Dextrose 115 ml @ 28.75 mls/ hr Q8H IV 07/04/17 22:00 07/14/17 13:59 07/06/17 05:31 28.75 MLS/HR Piperacillin Sod/ Tazobactam Sod (Consult) 1 ea UD PRN N/A 07/04/17 16:15 11/2/17 16:14 Methylprednisolone Sodium Succinate 20 mg/Syringe 0.32 ml @ 1.5 mls/min TID IV 07/04/17 21:00 08/03/17 20:59 07/06/17 09:24 1.5 MLS/MIN Polyethylene Glycol/ Electrolytes (Golytely Soln) 16 dose TODAY@0600,1800 PO 07/05/17 18:00 07/06/17 11:00 07/06/17 05:31 16 DOSE Assessment and Plan Assessment and Plan: This is 27 year-old male with no significant PMH except of right inguinal hernia pending surgical repair presented on 07/04 with RLQ pain with nausea. DDx: healthy, young 27 year-old with RLQ pain - strangulated hernia, appendicitis, colitis, IBD. Abdominal CT - Thickening of terminal ileum with nodular wall thickening and mucosal hyperemia of cecum and ascending colon, dilated appendix without signs of appendicitis. Colitis vs IBD. Abdominal pain - Colitis/suspected IBD WBC is back at 13.95. Could be from infection but also from steroid use. ESR is normal at 12. Pain improved. - Continue Zosyn - Continue Solu-medrol 20mg TID to help with symptoms. WBC and left shift may occur due to steroid. - IVF - GI and General surgery consulted - no indication for surgical intervention right now. Continue monitor pt's condition. - Colonoscopy today. Right inguinal hernia No signs of bowel obstruction or strangulated hernia on CT - Follow with Dr. Medrano for further plan. DVT prophylaxis - ambulation Continued [facility] stay due to: other (colonoscopy)
[2017-07-06] MEDS ORDERED: METR-163 PO (13:01)
[2017-07-06] MEDS ORDERED: CPR500 PO (13:01)
--- NOTE | 2017-07-06 13:10 | Discharge Summary ---
Discharge Summary Date of Service Jul 06, 2017. Discharge Summary Admission Date: Jul 04, 2017 at 14:46 Discharge Date: Jul 06, 2017 Discharge Disposition: Home Principal Diagnosis: Abdominal pain secondary to colitis vs IBD vs appendicitis Problems/Secondary Diagnoses: R inguinal hernia Procedures: colonoscopy ABD/PELVIS IV AND ORAL CONT HISTORY: 27 years-old Male ABDOMINAL PAIN, R/O APPY acute generalized abdominal pain, most pronounced within the abdominal right lower quadrant. Concern for possible acute appendicitis. History of fat-containing right inguinal hernia. COMPARISON: Ultrasound of the abdomen 04/21/2017 TECHNIQUE: Multiple axial CT images of the abdomen and pelvis were obtained following the intravenous administration of 94 mL Optiray 320. Oral contrast was also used. A dose lowering technique was used consistent with the principals of MADHU. FINDINGS: Lung bases are clear bilaterally. No pneumoperitoneum. Imaged inferior cardiac chambers are unremarkable. The liver, spleen, gallbladder and adrenal glands are unremarkable. The imaged pancreatic head and neck appear normal with no significant pancreatic tissue seen within the expected region of the pancreatic body and tail. The kidneys, ureters, urinary bladder and prostate are unremarkable. Abdominal aorta is normal in both course and caliber. No bulky retroperitoneal adenopathy. Small fat filled right inguinal hernia redemonstrated with mild stranding. There is no bowel obstruction. The appendix is mildly dilated, 8 mm however does contain air within its lumen. Mild amount of contrast is seen within the proximal appendiceal lumen. Scattered mildly prominent mesenteric lymph nodes are seen within the right lower quadrant measuring up to 1.5 x 0.9 cm. There is moderate wall thickening of the terminal ileum with extensive nodular wall thickening and mucosal hyperemia of the cecum and proximal portion of the ascending colon. Moderate surrounding inflammatory stranding and trace right pericolic gutter ascites noted. Soft tissues are unremarkable. Subacute to chronic appearing bilateral pars defects are present at L5 without anterolisthesis. IMPRESSION: 1. Moderate wall thickening of the terminal ileum with extensive nodular wall thickening and mucosal hyperemia of the cecum and proximal ascending colon is present with moderate surrounding inflammatory stranding and trace right pericolic ascites suggesting inflammatory bowel disease or infectious colitis. Follow-up colonoscopy after treatment recommended. 2. Dilated appendix, 8 mm contains air and minimal contrast within its lumen suggesting reactive changes without definite evidence of acute appendicitis. 3. Subacute to chronic appearing bilateral pars defects at L5 without spondylolisthesis. 4. No significant pancreatic tissue is seen within the expected region of the pancreatic body and tail which may be congenital variation or atrophic changes. The above report was generated using voice recognition software. It may contain grammatical, syntax or spelling errors. Electronically signed by: Luke Hemphill M.D. 07/04/2017 1:03 PM Dictated Date/Time: 07/04/2017 12:53 PM The status of this report is Signed. Draft = Not yet reviewed or approved by Radiologist. Signed = Reviewed and approved by Radiologist. Consultations: General surgery GI Medication Reconciliation New Medications: Ciprofloxacin (Ciprofloxacin HCl) 500 Mg Tab 500 MG PO BID for 7 Days, #14 TAB Metronidazole (Flagyl) 500 Mg Tab 500 MG PO TID for 7 Days, #21 TAB Discharge Exam Review of Systems: Constitutional: No fever, No chills, No sweats, No weakness, No fatigue ENT: No hearing loss Respiratory: No cough, No shortness of breath, No hemoptysis Cardiovascular: No chest pain, No edema, No palpitations Abdomen: + pain (mild), No nausea, No vomiting, No diarrhea, No constipation , No GI bleeding Musculoskeletal: No joint pain, No muscle pain, No swelling, No calf pain Genitourinary - Male: No hematuria, No dysuria Neurologic: No weakness, No numbness/tingling Psychiatric: No depression symptoms, No anxiety Endocrine: No fatigue Hematologic / Lymphatic: No abnormal bleeding/bruising Integumentary: No rash, No itch, No new/changing skin lesions Physical Exam: General Appearance: WD/WN, no apparent distress Eyes: normal inspection, PERRL ENT: hearing grossly normal Neck: supple Respiratory/Chest: lungs clear, normal breath sounds, no respiratory distress, no accessory muscle use Cardiovascular: regular rate, rhythm Abdomen / GI: non tender, soft, + tenderness (mild ttp RLQ) Extremities: no calf tenderness, no pedal edema Neurologic/Psychiatric: alert, normal mood/affect, oriented x 3 Skin: normal color, warm/dry, no rash Hospital Course Admission H&P: This is a 27 y/o male with no significant past medical history who presented for direct admission with RLQ abdominal pain. The patient states that he first developed a generalized abdominal pain about 36 hours ago that was accompanied by severe nausea, although he denies any vomiting. The pain then localized to his RLQ to a very specific point. He states that his nausea has resolved and his abdominal pain is now mostly gone at rest. He now complains of an intermittent 6/10 sharp RLQ pain that is brought on by certain movements/ positions, such as sitting up or abdominal flexion. The patient denies fevers, chills, sweats, chest pain, palpitations, claudication, cough, wheezing, shortness of breath, nausea, vomiting, dysuria, hematuria, urinary retention, paralysis, weakness, numbness and tingling. Physical Exam Vital Signs Date Time Temp Pulse Resp B/P (MAP) Pulse Ox O2 Delivery O2 Flow Rate FiO2 07/04/17 14:32 36.9 96 18 141/89 98 Room Air General appearance: Well-developed, well-nourished, no apparent distress Head: Normocephalic, atraumatic Eyes: Normal inspection, PERRL, EOMI ENT: Normal ENT inspection, hearing grossly normal, pharynx normal Neck: Supple, no JVD, trachea midline Respiratory/Chest: Lungs clear to auscultation, normal breath sounds, no respiratory distress Cardiovascular: Regular rate & rhythm, no gallop, no murmur Abdomen/GI: +RLQ TTP. McBurney's point TTP. Normal bowel sounds, soft Extremities/Musculoskeletal: Normal inspection, no calf tenderness, no pedal edema Neurological/Psych: Alert, normal mood/affect, oriented x 3 Skin: Normal color, warm/dry, no rash Hospital Course: RLQ pain, secondary to ?IBD vs appendicitis vs colitis: - Admit to med/surg - NSS @ 125 cc/hr until tolerating PO - Advance diet as per General Surgery/GI - Morphine 2 mg IV q4h PRN pain - Zofran 4 mg IV q6h PRN nausea - IV Zosyn- started on 07/04 -- Discharged on Cipro BID and Flagyl TID x7 days - Consult general surgery, appreciate recommendations- no surgical intervention at this time - Consult GI, appreciate recommendations -- IV antibiotics + Solu-Medrol TID -- Crohn's studies pending, ESR WNL -- f/u outpatient as instructed -- Colonoscopy on 07/06 Right inguinal hernia- Scheduled for inguinal hernia repair 07/[address] Medrano- General surgery following DVT prophylaxis: SCDs/ambulation, chemical prophylaxis held due to ?surgery Code Status: LEVEL I, FULL Dispo: Discharge to home Total Time Spent: Greater than 30 minutes This includes examination of the patient, discharge planning, medication reconciliation, and communication with other providers. Discharge Instructions Please refer to the electronic Patient Visit Report (Discharge Instructions) for additional information. Follow-Up Please follow-up with your PCP within 5-7 days Please follow-up with GI as instructed by Dr. Denton Follow-up with General Surgery as scheduled Please follow-up/keep all of your subspecialty appointments Additional Copies To Chela Perez D.O.
--- NOTE | 2017-07-06 13:11 | Discharge Instructions ---
Discharge Instructions Date of Service Jul 06, 2017. Admission Reason for Admission: Appendicitis, Ibd Discharge Discharge Diagnosis / Problem: colitis Discharge Goals Goal(s): Decrease discomfort, Improve function, Improve disease control, Learn about illness, Diagnostic testing, Therapeutic intervention, Prevent Disease Progression Activity Recommendations Activity Limitations: resume your previous activity . Instructions / Follow-Up Instructions / Follow-Up New Medications: Ciprofloxacin 500 mg by mouth twice daily until prescription is completed- start on 07/07 Flagyl 500 mg by mouth three times per day until prescription is completed- start on 07/07 FOLLOW-UPS: Please follow-up with your PCP within 5-7 days Please follow-up with GI as instructed by Dr. Denton Follow-up with General surgery as scheduled Please follow-up/keep all of your subspecialty appointments Current Hospital Diet Patient's current hospital diet: Clear Liquid Diet Discharge Diet Recommended Diet: N/A (Advance diet slowly and as tolerated ) Pending Studies Studies pending at discharge: no Medical Emergencies . Who to Call and When: Medical Emergencies: If at any time you feel your situation is an emergency, please call 911 immediately. . Non-Emergent Contact Non-Emergency issues call your: Primary Care Provider Call Non-Emergent contact if: your pain is not controlled, your pain is worsening, your pain is unusual for you, your pain is concerning you, you have any medication questions . . "Provider Documentation" section prepared by Santa Bowling. . VTE Core Measure Inpt VTE Proph given/why not?: SCD's
--- NOTE | 2017-07-06 13:51 | Endo History and Physical ---
History & Physical Date of Service: Jul 06, 2017. Chief Complaint: RLQ pain Referring Physician: Dr Perez History of Present Illness For colonoscopy Past Surgical History Hx Cardiac Surgery: No Hx Abdominal Surgery: Yes (left inguinal hernia repair 2008) Hx Post-Op Nausea and Vomiting: No Hx Cancer Surgery: No Hx Thoracic Surgery: No Hx Orthopedic: No Hx Urinary Tract Surgery: No Social History Smoking Status: Never Smoker Smokeless Tobacco Use: No Hx Substance Use: No Hx Alcohol Use: Yes (1 x week) Allergies Coded Allergies: No Known Allergies (Unverified , 06/28/17) Current Medications Reported Home Medications Medications Dose Route/Sig Max Daily Dose Days Date Category Flagyl (Metronidazole) 500 Mg Tab 500 Mg PO TID 7 07/06/17 Rx Ciprofloxacin HCl (Ciprofloxacin) 500 Mg Tab 500 Mg PO BID 7 07/06/17 Rx Vital Signs Weight (Kilograms): 75.100 Height (Feet): 5 Height (Inches): 11.00 Date Time Temp Pulse Resp B/P (MAP) Pulse Ox O2 Delivery O2 Flow Rate FiO2 07/06/17 13:44 36.8 72 18 147/80 (102) 97 Room Air 07/06/17 08:00 Room Air 07/06/17 07:05 36.2 67 16 139/83 (101) 98 Room Air 07/05/17 23:45 Room Air 07/05/17 23:07 75 18 150/80 (103) 100 Room Air 07/05/17 22:10 36.8 07/05/17 16:37 36.7 78 18 139/81 97 Room Air 07/05/17 15:58 36.7 78 18 139/81 (100) 97 Room Air 07/05/17 15:30 Room Air Physical Exam General Appearance: WD/WN Respiratory/Chest: Respiratory effort: no dyspnea Cardiovascular: Heart Auscultation: RRR Abdomen: Bowel Sounds: pertinent finding Inspection & Palpation: RLQ tenderness Assessment and Plan RLQ pain for colonoscopy
[2017-07-06] MEDS ORDERED: MIDAZOLAM HCL 1 MG/ML 2ML VIAL ONE (13:56)
[2017-07-06] MEDS ORDERED: LIDOCAINE HCL 2% 2 ML VIAL (20MG/ML) ONE (14:05)
[2017-07-06] MEDS ORDERED: PROPOFOL IV EMULSION 10 MG/ML 20 ML VIAL IV ONE (14:05)
[2017-07-06] MEDS ORDERED: GLYCOPYRROLATE INJ 0.2 MG/ML VIAL ONE (14:09)
--- NOTE | 2017-07-06 14:13 | Discharge Instructions ---
Endoscopy Patient Instructions Date / Procedure(s) Performed Jul 06, 2017. Colonoscopy Allergy Information Coded Allergies: No Known Allergies (Unverified , 06/28/17) Discharge Date / Findings Jul 06, 2017. normal colon Medication Instructions Restart Stopped Medication(s): stop steroids Current Inpatient Medications Medications (Trade) Dose Ordered Sig/Lemuel Route Start Time Stop Time Status Last Admin Dose Admin Ioversol (Optiray 320) 100 ml UD PRN IV 07/04/17 11:00 07/08/17 10:59 Acetaminophen (Tylenol Tab) 650 mg Q4H PRN PO 07/04/17 14:45 08/03/17 14:44 Zolpidem Tartrate (Ambien Tab) 5 mg HSZ PRN PO 07/04/17 14:45 08/03/17 14:44 Ondansetron HCl (Zofran Inj) 4 mg Q6H PRN IV 07/04/17 14:45 08/03/17 14:44 Morphine Sulfate (MoRPHine SULFATE INJ) 2 mg Q4H PRN IV 07/04/17 15:30 07/18/17 15:29 Sodium Chloride 1,000 ml @ 125 mls/hr Q8H IV 07/04/17 15:30 08/03/17 15:29 07/06/17 07:09 125 MLS/HR Piperacillin Sod/ Tazobactam Sod 3.375 gm/Dextrose 115 ml @ 28.75 mls/ hr Q8H IV 07/04/17 22:00 07/14/17 13:59 07/06/17 05:31 28.75 MLS/HR Piperacillin Sod/ Tazobactam Sod (Consult) 1 ea UD PRN N/A 07/04/17 16:15 08/03/17 16:14 Methylprednisolone Sodium Succinate 20 mg/Syringe 0.32 ml @ 1.5 mls/min TID IV 07/04/17 21:00 08/03/17 20:59 07/06/17 09:24 1.5 MLS/MIN Provider Instructions Activity Restrictions - No exercising or heavy lifting for 24 hours. - Do not drink alcohol the day of the procedure. - Do not drive a car or operate machinery until the day after the procedure. - Do not make any important decisions or sign important papers in 24 hours after the procedure. Following Day: - Return to full activity which may include returning to work/school. Diet Start your diet with liquids and light foods (jello, soup, juice, toast). Then eat your usual diet if not nauseated. Treatment For Common After Affects For mild abdominal pain, bloating, or excessive gas: - Rest - Eat lightly - Lie on right side Follow-Up Information Follow-up with as scheduled Anesthesia Information What You Should Know You have had a procedure that required some medicine to reduce anxiety and discomfort. This treatment is called moderate sedation. After receiving the treatment, you may be sleepy, but you will be able to breathe on your own. The effects of the treatment may last for several hours. Follow these instructions along with Activity/Diet recommendations noted above: * Do NOT do anything where dizziness or clumsiness would be dangerous. * Rest quietly at home today, then you can be up and about tomorrow. * Have a responsible person stay with you the rest of today. * You may have had an I.V. today. If so, you may take the dressing off later today. Recommendations Call your doctor if: * Trouble breathing * Continuous vomiting for more than 24 hours * Temperature above 101 degrees * Severe abdominal pain or bloating * Pain not relieved by pain medicine ordered * There is increased drainage or redness from any incision * A large amount of rectal bleeding greater than 2-3 tablespoons. (If you had a polyp/s removed or have hemorrhoids, a small amount of blood - from the rectum is to be expected.) * You have any unanswered questions or concerns. IN THE EVENT OF A SERIOUS EMERGENCY, GO TO THE NEAREST EMERGENCY ROOM Your discharge instructions were prepared by provider Calvin Denton. Patient Instructions Signature Page Bairon Jarvis Patient (or Guardian) Signature/Date: I have read and understand the instructions given to me by my caregivers. Caregiver/RN/Doctor Signature/Date: The above-named patient and/or guardian has received patient instructions on this date. + Original Patient Signature Page (only) stays with chart. Please make copy for patient.
--- NOTE | 2017-07-06 14:19 | GI REPORT ---
Procedure Date: 07/06/2017 1:50 PM Procedure: Colonoscopy Indications: Abdominal pain in the right lower quadrant, Abnormal CT of the GI tract Medicines: Midazolam 2 mg IV, Propofol total dose 280 mg IV, Lidocaine 40 mg IV, Robinul 0.2 mg IV Complications: No immediate complications. Estimated Blood Loss: Estimated blood loss: none. Procedure: Pre-Anesthesia Assessment: - Prior to the procedure, a History and Physical was performed, and patient medications, allergies and sensitivities were reviewed. The patient's tolerance of previous anesthesia was reviewed. - The risks and benefits of the procedure and the sedation options and risks were discussed with the patient. All questions were answered and informed consent was obtained. After I obtained informed consent, the scope was passed under direct vision. Throughout the procedure, the patient's blood pressure, pulse, and oxygen saturations were monitored continuously. The Scope was introduced through the anus and advanced to the terminal ileum. The colonoscopy was performed without difficulty. The patient tolerated the procedure well. The quality of the bowel preparation was excellent. Findings: The terminal ileum appeared normal. The entire examined colon appeared normal. Impression: - The examined portion of the ileum was normal. - The entire examined colon is normal. - No specimens collected. Recommendation: - [facility] for [facility] care. Calvin Denton M.D. Calvin Denton MD 07/06/2017 2:18:24 PM This report has been signed electronically. Note Initiated On: 07/06/2017 1:50 PM I attest to the content of the Intraoperative Record and orders documented therein, exceptions below
--- NOTE | 2017-07-06 14:33 | Anesthesiology Progress Note ---
Anesthesia Post Op Note Date & Time Jul 06, 2017 at 14:33 Vital Signs Pain Intensity: 0 Vital Signs Past 12 Hours Date Time Temp Pulse Resp B/P (MAP) Pulse Ox O2 Delivery O2 Flow Rate FiO2 07/06/17 14:31 61 18 132/81 (98) 97 Room Air 07/06/17 14:15 58 18 127/81 (96) 97 Room Air 07/06/17 13:44 36.8 72 18 147/80 (102) 97 Room Air 07/06/17 08:00 Room Air 07/06/17 07:05 36.2 67 16 139/83 (101) 98 Room Air Notes Mental Status: alert / awake / arousable, participated in evaluation Pt Amnestic to Procedure: Yes Nausea / Vomiting: adequately controlled Pain: adequately controlled Airway Patency, RR, SpO2: stable & adequate BP & HR: stable & adequate Hydration State: stable & adequate Anesthetic Complications: no major complications apparent
--- NOTE | 2017-07-06 14:58 | PROGRESS NOTE ---
DATE: 07/06/2017 DATE: 07/06/2017 SUBJECTIVE: The patient continues to have an elevated white count, but he remains afebrile. The patient underwent a colonoscopy today including the terminal ileum. The mucosa throughout the colon and terminal ileum was normal. There was some lymphoid hyperplasia in the terminal ileum which would be normal for his age. There is no evidence of inflammation or Crohn's disease. Appendiceal orifice looked normal also. IMPRESSION: The patient's right lower quadrant pain is improving on antibiotics. I plan on stopping his IV steroids. It appears as though the inflammation is probably related to acute appendicitis. I discussed this with Dr. Vaz who will potentially schedule patient for an appendectomy tomorrow.
[2017-07-06 15:02] VITALS: BP 117/63; PULSE 58; TEMP 36.4; O2SAT 100
--- NOTE | 2017-07-06 15:05 | Progress Note ---
Progress Note Date of Service Jul 06, 2017. Progress Note colonoscopy unremarkable remains tender, WBC 13,000 on Zosyn/steroids will plan for laparoscopy tomorrow with appendectomy, possible open
--- NOTE | 2017-07-06 15:12 | Hospitalist Progress Note ---
Hospitalist Progress Note Date of Service Jul 06, 2017. (Santa Bowling, THERESA) Subjective Pt evaluation today including: conversation w/ patient, physical exam, lab review, review of studies, review of inpatient medication list Voiding: no voiding problems Patient feeling well. Tolerated prep OK. Abdominal pain is very minimal. Patient denies any fever, chills, sweats, lightheadedness, dizziness, vision changes, CP, palpitations, edema, SOB, wheezing, cough, nausea, vomiting, diarrhea, urinary symptoms, melena, numbness/tingling, weakness, muscle/joint pain, anxiety/depression, active bleeding, or new skin discoloration/changes. (Santa Bowling PA-C) Medications Current Inpatient Medications Medications (Trade) Dose Ordered Sig/Lemuel Route Start Time Stop Time Status Last Admin Dose Admin Ioversol (Optiray 320) 100 ml UD PRN IV 07/04/17 11:00 07/08/17 10:59 Acetaminophen (Tylenol Tab) 650 mg Q4H PRN PO 07/04/17 14:45 08/03/17 14:44 Zolpidem Tartrate (Ambien Tab) 5 mg HSZ PRN PO 07/04/17 14:45 08/03/17 14:44 Ondansetron HCl (Zofran Inj) 4 mg Q6H PRN IV 07/04/17 14:45 08/03/17 14:44 Morphine Sulfate (MoRPHine SULFATE INJ) 2 mg Q4H PRN IV 07/04/17 15:30 07/18/17 15:29 Sodium Chloride 1,000 ml @ 125 mls/hr Q8H IV 07/04/17 15:30 08/03/17 15:29 07/06/17 07:09 125 MLS/HR Piperacillin Sod/ Tazobactam Sod 3.375 gm/Dextrose 115 ml @ 28.75 mls/ hr Q8H IV 07/04/17 22:00 07/14/17 13:59 07/06/17 15:07 28.75 MLS/HR Piperacillin Sod/ Tazobactam Sod (Consult) 1 ea UD PRN N/A 07/04/17 16:15 08/03/17 16:14 (Santa Bowling ., RAJESHC) Objective Vital Signs Date Time Temp Pulse Resp B/P (MAP) Pulse Ox O2 Delivery O2 Flow Rate FiO2 07/06/17 15:02 36.4 58 16 117/63 (81) 100 Room Air 07/06/17 14:41 67 18 126/77 (93) 98 Room Air 07/06/17 14:31 61 18 132/81 (98) 97 Room Air 07/06/17 14:15 58 18 127/81 (96) 97 Room Air 07/06/17 13:44 36.8 72 18 147/80 (102) 97 Room Air 07/06/17 08:00 Room Air 07/06/17 07:05 36.2 67 16 139/83 (101) 98 Room Air 07/05/17 23:45 Room Air 07/05/17 23:07 75 18 150/80 (103) 100 Room Air 07/05/17 22:10 36.8 07/05/17 16:37 36.7 78 18 139/81 97 Room Air 07/05/17 15:58 36.7 78 18 139/81 (100) 97 Room Air 07/05/17 15:30 Room Air (Santa Bowling ., PA-C) Physical Exam General Appearance: no apparent distress Eyes: normal inspection, PERRL ENT: hearing grossly normal Neck: supple Respiratory/Chest: lungs clear, normal breath sounds, no respiratory distress, no accessory muscle use Cardiovascular: regular rate, rhythm Abdomen: normal bowel sounds, soft, + tenderness (mild RLQ ttp) Extremities: no pedal edema, no calf tenderness Neurologic/Psychiatric: alert, normal mood/affect, oriented x 3 Skin: normal color, warm/dry, no rash (Santa Bowling ., PA-C) Laboratory Results Last 24 Hours Test 07/06/17 06:04 White Blood Count 13.95 K/uL Red Blood Count 4.44 M/uL Hemoglobin 12.6 g/dL Hematocrit 36.7 % Mean Corpuscular Volume 82.7 fL Mean Corpuscular Hemoglobin 28.4 pg Mean Corpuscular Hemoglobin Concent 34.3 g/dl RDW Standard Deviation 37.7 fL RDW Coefficient of Variation 12.4 % Platelet Count 184 K/uL Mean Platelet Volume 9.6 fL Sodium Level 143 mmol/L Potassium Level 4.5 mmol/L Chloride Level 109 mmol/L Carbon Dioxide Level 28 mmol/L Anion Gap 6.0 mmol/L Blood Urea Nitrogen 8 mg/dl Creatinine 0.82 mg/dl Est Creatinine Clear Calc Drug Dose 141.2 ml/min Estimated GFR () 138.5 Estimated GFR (Non- 119.5 BUN/Creatinine Ratio 9.6 Random Glucose 130 mg/dl Calcium Level 9.3 mg/dl (Santa Bowling ., PA-C) Assessment and Plan RLQ pain, secondary to ?IBD vs appendicitis vs colitis: - Admit to med/surg - NSS @ 125 cc/hr until tolerating PO - Advance diet as per General Surgery/GI - Morphine 2 mg IV q4h PRN pain - Zofran 4 mg IV q6h PRN nausea - IV Zosyn- started on 07/04 -- Discharged on Cipro BID and Flagyl TID x7 days - Consult general surgery, appreciate recommendations -- Planning for appendectomy on 07/07 - Consult GI, appreciate recommendations -- IV antibiotics + Solu-Medrol TID- d/c'd steroid on 07/06 due to unremarkable colonoscopy -- Crohn's studies pending, ESR WNL -- Colonoscopy on 07/06- unremarkable Right inguinal hernia- Scheduled for inguinal hernia repair 07/[address] Medrano- General surgery following DVT prophylaxis: SCDs/ambulation, chemical prophylaxis held due to upcoming appendectomy Code Status: LEVEL I, FULL Dispo: Discharge to home once medically stable- no discharge needs anticipated (Santa Bowling ., PA-C) I agree with PA Assessment and plan and have seen and examined pt myself Resting comfortably in bed No worsening pain at this time Slight RLQ pain 11/11 VSS Labs reviewed COlonoscopy and ?appendectomy later as well (Vic Avila, D.O.)
[2017-07-06 23:37] VITALS: BP 122/69; PULSE 54; TEMP 36.5; O2SAT 96
[2017-07-07] VITALS (11 sets, daily range): BP systolic 123–136; BP diastolic 71–83; PULSE 52–73; TEMP 36.2–36.8; O2SAT 93–98
[2017-07-07] MEDS: PIPERACILL/TAZOBAC IV 3.375 GM in DEXTROSE 5% 100ML 100 ML IV SCH ×2 (05:36→13:50)
[2017-07-07 07:05] LABS: HEMATOCRIT 36.1 % (42-52); MEAN CORPUSCULAR HGB CONC 33.8 g/dl (32-36); MEAN PLATELET VOLUME 9.9 fL (7.4-10.4); PLATELET COUNT 181 K/uL (130-400); RED BLOOD COUNT 4.35 M/uL (4.7-6.1); WHITE BLOOD COUNT 6.95 K/uL (4.8-10.8)
[2017-07-07 07:36] LABS: BUN/CREATININE RATIO 10.4 (10-20); CALCIUM 8.6 mg/dl (8.5-10.1); CREATININE 0.9 mg/dl (0.60-1.40)
[2017-07-07] MEDS: SODIUM CHLORIDE 0.9% 1000ML 1,000 ML IV SCH (07:36)
--- NOTE | 2017-07-07 07:59 | History & Physical Bridge Note ---
H&P Re-Evaluation Bridge Note: I have examined the patient, reviewed the History & Physical and in the interval since the performance of the History & Physical I have noted the following changes of clinical significance: No changes noted discussesd colonoscopy with Dr Denton no mucosal irregularity in cecum and ileum pt still with some pain rlq but less options to continue antibiotic rx or lap appy possible open at this time rec lap appy possible open possible bowel resection not sure if cecal inflammation primary or secondary to appendicitis
[2017-07-07] MEDS ORDERED: LIDOCAINE HCL 2% 2 ML VIAL (20MG/ML) ONE (08:05)
[2017-07-07] MEDS ORDERED: GLYCOPYRROLATE INJ 0.2 MG/ML VIAL ONE (08:05)
[2017-07-07] MEDS ORDERED: PROPOFOL IV EMULSION 10 MG/ML 20 ML VIAL IV ONE (08:05)
[2017-07-07] MEDS ORDERED: NEOSTIGMINE METHYLSULFATE 5 MG/5 ML SYR ONE (08:05)
[2017-07-07] MEDS ORDERED: FENTANYL CITRATE INJ 50 MCG/1 ML 2 ML VIAL ONE (08:05)
[2017-07-07] MEDS ORDERED: ONDANSETRON INJ 2 MG/ML 2 ML VIAL ONE (08:05)
[2017-07-07] MEDS ORDERED: MIDAZOLAM HCL 1 MG/ML 2ML VIAL ONE (08:05)
[2017-07-07] MEDS ORDERED: DEXAMETHASONE SOD INJ 4 MG/ML VIAL ONE (08:05)
[2017-07-07] MEDS ORDERED: ROCURONIUM BROMIDE 10 MG/ML 5 ML VIAL IV ONE (08:07)
[2017-07-07] MEDS ORDERED: LIDOCAINE/EPINEPHRINE 1% 20 ML VIAL ONE (08:20)
[2017-07-07] MEDS ORDERED: ONDANSETRON INJ 2 MG/ML 2 ML VIAL IV PRN (09:00)
[2017-07-07] MEDS ORDERED: KETOROLAC TROMETHAMINE 30 MG/ML VIAL IV. PRN (09:00)
[2017-07-07] MEDS ORDERED: ATROPINE SULFATE 0.1 MG/ML 5ML SYR IV PRN (09:00)
[2017-07-07] MEDS ORDERED: HYDROmorphone INJ 2 MG/ML SYR/VIAL IV PRN (09:00)
[2017-07-07] MEDS ORDERED: KETOROLAC TROMETHAMINE 30 MG/ML VIAL ONE (09:33)
[2017-07-07] MEDS ORDERED: OXYC-57 PO (09:51)
[2017-07-07] MEDS ORDERED: OXYCODONE/ACETAMINOPHEN 5-325 TAB PO PRN ×2 (10:00)
[2017-07-07] MEDS ORDERED: MoRPHine SULFATE 4 MG/ML 1 ML CARP\\VIAL IV PRN (10:00)
--- NOTE | 2017-07-07 10:09 | Anesthesiology Progress Note ---
Anesthesia Post Op Note Date & Time Jul 07, 2017 at 10:09 Vital Signs Pain Intensity: 0 Vital Signs Past 12 Hours Date Time Temp Pulse Resp B/P (MAP) Pulse Ox O2 Delivery O2 Flow Rate FiO2 07/07/17 10:00 59 16 134/80 99 Oxymask 10 07/07/17 09:52 36.4 63 16 145/87 99 Oxymask 10 07/07/17 07:50 Room Air 07/07/17 07:45 36.5 52 16 135/78 (97) 98 Room Air 07/07/17 00:00 Room Air 07/06/17 23:37 36.5 54 16 122/69 (86) 96 Room Air Notes Mental Status: alert / awake / arousable, participated in evaluation Pt Amnestic to Procedure: Yes Nausea / Vomiting: adequately controlled Pain: adequately controlled Airway Patency, RR, SpO2: stable & adequate BP & HR: stable & adequate Hydration State: stable & adequate Anesthetic Complications: no major complications apparent
--- NOTE | 2017-07-07 10:09 | Discharge Instructions ---
Discharge Instructions Date of Service Jul 07, 2017. Admission Reason for Admission: Appendicitis, Ibd Discharge Discharge Diagnosis / Problem: Appendicitis Discharge Goals Goal(s): Decrease discomfort, Improve disease control, Learn about illness, Diagnostic testing, Therapeutic intervention, Prevent Disease Progression Activity Recommendations Activity Limitations: per Instructions/Follow-up section As per General Surgery recommendations Instructions / Follow-Up Instructions / Follow-Up You were admitted to [facility] due to abdominal pain. You were treated with IV fluids and IV antibiotics. A colonoscopy was performed to help determine the cause of your symptoms, which was unremarkable. Due to continued symptoms and a negative colonoscopy, the cause of your symptoms were felt to be due to your appendix and you underwent an appendectomy. NEW MEDICATIONS: Percocet 1-2 tablets by mouth ONLY NEEDED every 4 hours for pain control FOLLOW-UPS: Please follow-up with your PCP within 5-7 days Please follow-up with General Surgery within the next 1-2 weeks Follow-up with GI as instructed by Dr. Denton Please follow-up/keep all of your subspecialty appointments Current Hospital Diet Patient's current hospital diet: Regular Diet Discharge Diet Recommended Diet: Clear Liquid Diet Procedures Procedures Performed: Laparoscopic Appendectomy Pending Studies Studies pending at discharge: no Medical Emergencies . Who to Call and When: Medical Emergencies: If at any time you feel your situation is an emergency, please call 911 immediately. . Non-Emergent Contact Non-Emergency issues call your: Primary Care Provider Call Non-Emergent contact if: you have a fever, your pain is not controlled, your pain is worsening, your pain is unusual for you, your pain is concerning you, wound has increased drainage, wound has increased redness, wound has increased pain, you have any medication questions . . "Provider Documentation" section prepared by Santa Bowling. . VTE Core Measure Inpt VTE Proph given/why not?: SCD's
--- NOTE | 2017-07-07 10:11 | [facility] Operative Report ---
Operative Report Operative Date Jul 07, 2017. Pre-Operative Diagnosis Acute appendicitis Post-Operative Diagnosis Acute appendicitis Procedure(s) Performed Laparoscopic Appendectomy Surgeon Dr. Vaz Reference Assistant Surgeon(s) Attila Wong PA-C Estimated Blood Loss 5 mL Findings edema cecum and terminal ileum without fat stranding mildly dilated appendix retrocecal without exudate or obvious inflammation Specimens A: Appendix I attest to the content of the Intraoperative Record and any orders documented therein. Any exceptions are noted below.
[2017-07-07] MEDS ORDERED: NURSING VERBAL MED ORDER ONE (11:15)
--- NOTE | 2017-07-07 11:50 | OPERATIVE REPORT ---
DATE OF OPERATION: 07/07/2017 SURGEON: Lacho Vaz MD MAIL COURIER: Marcie Sung PA-C. PREOPERATIVE DIAGNOSIS: Right lower quadrant inflammation and possible acute appendicitis. POSTOPERATIVE DIAGNOSIS: Same. PROCEDURE: Laparoscopic appendectomy. SUMMARY: After induction of general endotracheal anesthesia, the patient's abdomen was prepped with Betadine solution and properly draped. We made a small incision supraumbilical sufficient enough to place a Veress needle followed by CO2, followed by a 5 mm trocar. Point of entry inspected and no injury identified. When the camera was inserted, the patient was placed in the left lateral position with slight Trendelenburg. We were able to then visualize the right lower quadrant. The patient had an indirect hernia that was easily appreciated. There were no contents in fact he was scheduled to have the hernia fixed approximately 4 days electively. The patient also had some to the anterior abdominal wall, which was nonspecific. These were brought space. We visualized down towards the cecal area. We could not identify the cecum at this time. At this point, I placed a 5 mm right upper quadrant port under direct visualization. With this, we were able then to elevate the terminal ileum down to what appeared to be an adhesive band towards the cecal area. The cecum could be visualized down in the gutter. At this point, I am not able to see the appendix. Therefore, I changed the umbilical port to 11 mm and then placed a 5 mm in left lower quadrant. These were all done under direct visualization, but these 2 ports using a camera in the left lower quadrant, I was able then to free up the retroperitoneal attachments white line of Toldt sufficient enough to identify the cecum, which appeared to be thick walled. There were some inflammatory changes in the retrocecal area and towards the gutter and some inflamed tissue, but nothing specific. We identified the appendix, which was partially retrocecal as we elevated, we could see the appendix was dilated with some edema, but there is no evidence of any exudate in the area. Then, we created a window between the appendix and the cecum and used a purple stapler divided the appendix off the cecum. We then mobilized some more adhesive bands down towards the mesoappendix away from the terminal ileum and then used another stapler of purple stapler. The appendix was then placed in a bowel bag and taken out through the umbilical port. I could feel it was edematous, but there were no contents of the appendix. At this point, we checked our line of bleeding the suture line. There was some oozing along the staple line in mesoappendix, which we cauterized and used a 5 mm aster to come across it. Hemostasis was satisfactory. We then checked the retroperitoneal area free. There was no bleeding. I placed the patient in reverse Trendelenburg position, flat position and irrigated the pelvis until we got clear watery return. At this point, I checked at the terminal ileum more closely up to about 2 feet I could not see anything specific. There is no evidence of any fatty engorgement suspicious for Crohn's disease, which we did by CAT scan was documented as a possibility preoperatively. Once this was accomplished, we took out the individual trocars under direct visualization and no bleeding on last umbilical trocar. Wounds were closed with [id number] x2 in the umbilical fascial stitch. The other ones were 4-0 Monocryl. Steri-Strips applied. The procedure was tolerated well by the patient and was taken to recovery room in good condition. I attest to the content of the Intraoperative Record and any orders documented therein. Any exception s are noted below.
[2017-07-07] MEDS ORDERED: CIPR-255 PO (16:46)
[2017-07-07] MEDS ORDERED: METR-163 PO (16:46)
[2017-07-08 00:30] LABS: S.CEREVISIAE AB IGA 10.7 U (<=20.0)
== END 2017-07-07 18:45 | disposition home or self-care (01) | DRG 343 ==
LOC: C.CTS 10:39 → C.MSN 14:00 → UNDOADMIN 14:00 → C.MSN 14:46
PROVIDERS: ADMIT Internal Medicine; ATTEND Hospitalist
PROC: 0DJD8ZZ Inspection of Lower Intestinal Tract, Via Natural or Artificial Opening Endoscopic (ICD-10-PCS; principal; 2017-07-06 13:40)
PROC: 0DTJ0ZZ Resection of Appendix, Open Approach (ICD-10-PCS; 2017-07-07)
DX: K35.80 Unspecified acute appendicitis (principal); K58.9 Irritable bowel syndrome, unspecified; K40.90 Unilateral inguinal hernia, without obstruction or gangrene, not specified as recurrent; D72.829 Elevated white blood cell count, unspecified; Z82.49 Family history of ischemic heart disease and other diseases of the circulatory system; Z80.6 Family history of leukemia; Z82.3 Family history of stroke

== ENCOUNTER → 2017-08-18 | Day surgery (SDC) | payer OTHER ==
[2017-06-28 13:28] VITALS: BMI 23.0
[2017-08-07 11:06] VITALS: Ht 180.3 cm; Wt 75.0 kg
[~2017-08-18] VITALS: Ht 180.3 cm; Wt 75.0 kg
[~2017-08-18] MED LIST changes: +ATROPINE SULFATE 0.1 MG/ML 5ML SYR IV PRN; +BUPIVACAINE/EPINEPHRINE 0.5% MPF 1:200,000 30 ML VIAL INJ ONE; +CEFAZOLIN 2000MG IV PUSH 10 ML IV SCH; -CIPR-255 PO; -CPR500 PO; +EpHEDrine SULFATE INJ 50 MG/ML AMP IV PRN; +FENTANYL CITRATE INJ 50 MCG/1 ML 2 ML VIAL IV PRN; +HYDR-5688 PO; +HYDROCODONE/ACETAMOPHEN 5/325MG TAB PO PRN; +HYDROmorphone INJ 1 MG/ML SYR IV PRN; +IBUPROFEN 600 MG TAB PO PRN; +LACTATED RINGER'S 1000ML 1,000 ML IV SCH; -METR-163 PO; +NYSS/ PO; +ONDANSETRON INJ 2 MG/ML 2 ML VIAL IV PRN; -OXYC-57 PO; +PROMETHAZINE HCL INJ 12.5 MG in SODIUM CHLORIDE 0.9% 50ML 50 ML IV PRN; +SODIUM CHLORIDE 0.9% 1000ML 1,000 ML IV SCH
--- NOTE | 2017-08-18 13:22 | History and Physical ---
History & Physical Date Aug 18, 2017. History of Present Illness The patient is a 27 year old male with complaints of right inguinal hernia with some discomfort. his original surgery was delayed because of an acute illness. he ended up having a lap appy. he does relate some discomfort near his supra- umbilical incision. he states he has had an umbilical hernia for quite some time and it has never bothered him. Past Medical/Surgical History Medical Problems: (1) Appendicitis (2) IBD (inflammatory bowel disease) (3) Right retinal defect Additional History Hepatic Disease: No Endocrine Disorder: No Kidney Disease: No Hypertension: No Heart Disease: No Bleeding Tendencies: No Infectious Diseases: No Allergies Coded Allergies: NO KNOWN DRUG ALLERGIES (Verified Allergy, Unknown, ., 08/18/17) Uncoded Allergies: HAY FEVER (Allergy, Unknown, WATERY EYES, 08/07/17) Home Medications Scheduled Nystatin (Nystatin Suspension), 1 DOSE PO QID Physical Examination Skin: warm/dry, no rash Eyes: normal inspection, EOMI, sclerae normal Head: normocephalic, atraumatic Neck: no adenopathy, trachea midline Respiratory/Chest: no respiratory distress Cardiovascular: regular rate, rhythm Abdomen / GI: + pertinent finding (+/RIH. penis/testicles normal. + small umbilical hernia) Genitourinary - Male: normal male genitalia Neurologic/Psych: alert, oriented x 3 Diagnosis 1. right inguinal hernia 2. umbilical hernia Plan of Treatment we discussed surgical repair. we discussed the inguinal hernia would require mesh. we also discussed repairing the umbilical hernia at same time and the risks of that. we discussed bleeding/infection/dvt/pe/mi/injury to spermatic cord/infection of mesh requiring explant/ chronic pain etc... at this time he does not want the umbilical hernia repaired and only wants to the symptomatic inguinal hernia repaired. questions answered.
--- NOTE | 2017-08-18 14:26 | [facility] Operative Report ---
Operative Report Operative Date Aug 18, 2017. Pre-Operative Diagnosis Right Inguinal Open Hernia Repair With Mesh, Iloinguinal Neruolysis Post-Operative Diagnosis same as preop plus cord lipoma Procedure(s) Performed open right inguinal hernia repair with mesh;ilioinguinal neurolysis; excision of cord lipoma Surgeon Dr. Medrano Cabinet Finisher Surgeon(s) THERESA Fernandez Estimated Blood Loss 10ml Findings indirect right inguinal hernia; cord lipoma Specimens none per surgeon Anesthesia LMA Complication(s) None Disposition Recovery Room / PACU Description of Procedure After informed consent was obtained the patient was taken to the operating room and placed in a supine position. After successful placement of the laryngeal mask airway the right groin was shaved and sterilely prepped and draped in usual fashion. I began with an inguinal incision with a 15 blade scalpel and carried this down through the soft tissue using electrocautery. The external oblique aponeurosis was skeletonized and incised with a fresh blade. Metzenbaum scissors were used to extend this down through the external ring as well as for several centimeters proximally. Once in the inguinal canal I was able to dissect the cord and cord structures free from surrounding tissue using blunt finger dissection. The ilioinguinal nerve was readily apparent and I used a Metzenbaum scissor to sharply lyse this to prevent future cord entrapment. I was able to elevate the cord and cord structures with a blunt finger and placed a [place] around them mobilization and exposure. I was then able to examine the cord and cord structures. There was a readily apparent cord lipoma as well as a standard indirect hernia. There was no evidence of a direct hernia. I was able to use traction countertraction and small amounts of electrocautery to skeletonize the lipoma back to its neck. I simply excised with electrocautery and passed that off. In similar fashion I was able to use primarily blunt dissection to free the hernia sac up down to its neck. It then readily dunked back down into the abdominal cavity without any difficulty. We then used a piece of polypropylene keyhole mesh as an onlay. It was secured distally to Wyatt's ligament laterally along the shelving portion of Poupart's ligament and medially along the midline musculature. The "arms" of the mesh were wrapped around behind the cord and cord structures and secured to underlying muscle. We used 0 Ethibond for all the suturing. The mesh laid nice and flat and tension free without impinging the cord itself. There was adequate hemostasis. I thoroughly irrigated the wound. I used Marcaine to inject around the edges of the mesh for postoperative analgesia. We then closed the external oblique aponeurosis using 2-0 Vicryl in a running fashion. Soft tissue was irrigated and closed using 3-0 Vicryl and 4-0 Monocryl for the skin. Some additional Marcaine was injected around the incision for postoperative analgesia and skin glue used as a dressing. The patient was awaken extubated and transferred recovery in stable condition I attest to the content of the Intraoperative Record and any orders documented therein. Any exceptions are noted below.
--- NOTE | 2017-08-18 14:34 | Discharge Instructions ---
Discharge Instructions Date of Service Aug 18, 2017. Visit Reason for Visit: Right Inguinal Hernia Discharge Discharge Diagnosis / Problem: Right Inguinal Hernia Repair with Mesh Discharge Goals Goal(s): Decrease discomfort, Improve function Activity Recommendations Activity Limitations: as noted below Lifting Limitations: no more than 10 pounds, until after follow-up appointment Exercise/Sports Limitations: until after follow-up appointment (No strenuous ) Shower/Bathe: tomorrow Driving or Machine Use: resume 1 day after discharge (Do not drive while taking narcotic pain medication) Anesthesia . Post Anesthesia Instructions: If you have had General Anesthesia or IV Sedation: * Do not drive today. * Resume driving when surgeon permits. * Do not make important decisions or sign legal documents today. * Call surgeon for: 1. Temperature elevations greater than 101 degrees F. 2. Uncontrollable pain. 3. Excessive bleeding. 4. Persistent nausea and vomiting. 5. Medication intolerance (nausea, vomiting or rash). * For nausea and vomiting use only clear liquids such as: tea, soda, bouillon until nausea subsides, then gradually increase diet as tolerated. * If you have any concerns or questions, call your surgeon's office. If physician is unavailable and it is an emergency, call 911 or go to the nearest emergency room. . Instructions / Follow-Up Instructions / Follow-Up You have dissolvable sutures in place with surgical glue on top of your incision. Please allow this glue to fall off on its own. You have been prescribed norco for pain. You may also use Ibuprofen 600mg 4 times a day either alone or in conjunction with the norco as needed for pain. You may ice your incision site 20 minutes on 20 minutes off as needed to help reduce pain and inflammation. Please follow-up with Dr. Medrano in 2 weeks. Please call our office at to schedule an appointment if you have not done so already. Please contact our office with any further questions or concerns. [facility]. [address] [place] [address] Diet Recommendations Recommended Home Diet: no limitations, resume previous diet Procedures Procedures Performed: Right Inguinal Hernia Repair with Mesh Pending Studies Studies pending at discharge: no Medical Emergencies . Who to Call and When: Medical Emergencies: If at any time you feel your situation is an emergency, please call 911 immediately. . Non-Emergent Contact Non-Emergency issues call your: Primary Care Provider, Surgeon Call Non-Emergent contact if: you have a fever, temperature is above 101.5, your pain is not controlled, your pain is worsening, wound has increased drainage, wound has increased redness . . "Provider Documentation" section prepared by Rik Coreas. . [place] Drug Monitoring Program Search Results: patient reviewed within database, no issues identified
--- NOTE | 2017-08-18 15:00 | Anesthesia Progress Nt - [facility] ---
Anesthesia Post Op Note Date & Time Aug 18, 2017 at 14:59 Vital Signs Pain Intensity: 0 Vital Signs Past 12 Hours Date Time Temp Pulse Resp B/P (MAP) Pulse Ox O2 Delivery O2 Flow Rate FiO2 08/18/17 14:38 36.6 99 18 147/88 100 Diffusion Mask 5 08/18/17 10:52 36.4 67 16 130/87 (101) 100 Room Air Notes Mental Status: alert / awake / arousable, participated in evaluation Pt Amnestic to Procedure: Yes Nausea / Vomiting: adequately controlled Pain: adequately controlled Airway Patency, RR, SpO2: stable & adequate BP & HR: stable & adequate Hydration State: stable & adequate Anesthetic Complications: no major complications apparent
[2017-08-18 16:07] VITALS: BP 124/72; PULSE 65; TEMP 36.7; O2SAT 100
== END | disposition home or self-care (01) ==
LOC: X.SURG 10:28
PROVIDERS: ATTEND Surgery
DX: K40.90 Unilateral inguinal hernia, without obstruction or gangrene, not specified as recurrent (principal); D17.6 Benign lipomatous neoplasm of spermatic cord; Z90.89 Acquired absence of other organs; Z98.890 Other specified postprocedural states